=== PATIENT | female | born 1960 | race Caucasian/White ===

== ENCOUNTER 2017-10-08 10:49 | Emergency (ER) | payer OTHER ==
[~2017-10-08] VITALS: Ht 162.6 cm; Wt 66.2 kg
[2017-10-08 12:11] VITALS: Ht 162.6 cm; Wt 66.2 kg
[2017-10-08 14:27] LABS: BASOPHIL % 0.4 % (0-2); PLATELET COUNT 229 x10^3mcL (130-400); RED CELL DISTRIBUTION WIDTH 13.3 % (11.5-14.5)
[2017-10-08 14:31] LABS: CALCIUM 8.9 mg/dL (8.5-10.1); CARBON DIOXIDE 29.6 mmol/L (21-32); CHLORIDE SERUM 105 mmol/L (98-107); CREATININE SERUM 0.7 mg/dL (0.6-1.0); GFR1 > 60 mL/min; GLUCOSE SERUM 100 mg/dL (74-106); POTASSIUM SERUM 3.6 mmol/L (3.5-5.1); SODIUM SERUM 142 mmol/L (136-145)
[2017-10-08 14:36] LABS: ALKALINE PHOSPHATASE 80 U/L (46-116); ALT/SGPT 32 U/L (14-59); AST/SGOT 16 U/L (15-37); BILIRUBIN TOTAL 0.4 mg/dL (0.20-1.00); HDL CHOLESTEROL 40 mg/dL (40-60); LIPASE 164 IU/L (73-393); TOTAL PROTEIN, SERUM 7.6 g/dL (6.4-8.2)
[2017-10-08 14:37] LABS: CHOLESTEROL 204 mg/dL (<200); CHOLESTEROL/HDL RATIO 5.1; TRIGLYCERIDES 294 mg/dL (<150)
[2017-10-08 14:56] LABS: T3 TOTAL 0.87 ng/mL
[2017-10-08 15:20] LABS: FREE T4 1.25 ng/dL (0.76-1.46); FREE THYROXINE INDEX 3.2 ug/dL (1.4-4.5); T4(THYROXINE) 9.2 ug/dL (4.7-13.3)
[2017-10-08 15:34] LABS: microscopic required? YES; urine erythrocyte 1+ (NEGATIVE)
[2017-10-08 16:16] VITALS: BP 110/64
== END 2017-10-08 16:16 | disposition home or self-care (01) ==
LOC: ED 10:49
PROVIDERS: Specialist
DX: R53.1 Weakness (principal); R05 Cough; R51 Headache
CPT/HCPCS: 83880; 84439; 86308; 87804; J7030